=== PATIENT | male | born 1980 | race Caucasian/White ===

== ENCOUNTER 2018-05-04 14:26 | Emergency (ER) | END 2018-05-04 19:02 | disposition home or self-care (01) ==

== ENCOUNTER 2018-05-07 00:01 | Emergency (ER) | END 2018-05-07 06:27 | disposition home or self-care (01) ==

== ENCOUNTER 2018-12-04 14:37 | Emergency (ER) | payer MEDICAID, OTHER ==
[~2018-12-04] VITALS: Ht 167.6 cm; Wt 85.0 kg
[~2018-12-04 14:37] MED LIST: HYDR-4011 PO; IBUP-1542 PO
[2018-12-04 14:50] VITALS: Ht 167.6 cm; Wt 85.0 kg
[2018-12-04] MEDS ORDERED: KETOROLAC 60 MG INJ IM STA (18:10)
[2018-12-04] MEDS ORDERED: traMADol 50 MG TAB PO ONE (18:30)
[2018-12-04] MEDS ORDERED: INDO-39 PO (21:08)
[2018-12-04] MEDS ORDERED: TRAM50TA PO (21:08)
--- NOTE | 2018-12-04 21:29 | ERD ---
ER Documentation Chief Complaint Chief Complaint R leg pain since Sunday; denies injury/fall HPI History of Present Illness: History of Present Illness: Patient coming in today with complaint of right lower extremity pain for 2 days. Patient denies injury or trauma. Patient describes pain is constant, sharp, 7/10 to the top of right knee into the back of the knee and extending downward to calf, reports unable to fully bend and extend knee due to pain. Associated symptoms include swelling, erythema affected extremity. Denies fever chills fatigue. At home pharmacological/nonpharmacological treatment for symptoms: ice no relief of pain Social History: Patient denies tobacco, alcohol, elicit drug use Allergies: Penicillin Social Concerns: Denies ROS All systems reviewed and are negative except as per history of present illness. Medications Home Meds Active Scripts Tramadol Hcl* (Ultram*) 50 Mg Tablet, 50 MG PO Q8 for moderate/severe pain, #6 TAB Prov:SELINA SAGASTUME V RISK ADVISOR 12/04/18 Indomethacin* (Indocin*) 50 Mg Cap, 50 MG PO TID PRN for gout flareup, #30 CAP Prov:SELINA SAGASTUME V RISK ADVISOR 12/04/18 Hydrocodone/Acetaminophen (Riddle 5-325 Tablet) 1 Each Tablet, 1 TAB PO Q6H PRN for PAIN, #20 TAB Prov:BARTOLO,REG C 05/04/18 Ibuprofen* (Motrin*) 600 Mg Tab, 600 MG PO Q6, #30 TAB Prov:BARTOLO,REG C 05/04/18 Allergies Allergies: Coded Allergies: Penicillins (Unverified Allergy, Unknown, rashes, 05/07/18) PMhx/Soc History of Surgery: Yes (tumor removal at the back) Anesthesia Reaction: No Hx Neurological Disorder: No Hx Respiratory Disorders: No Hx Cardiac Disorders: No Hx Psychiatric Problems: No Hx Miscellaneous Medical Probl: No Hx Alcohol Use: Yes (used to drink daily; quit 2 weeks ago) Hx Substance Use: Yes (past use meth >1yr ago; marijuana 6mo ago) Hx Tobacco Use: Yes ("only on the weekends") Smoking Status: Current every day smoker FmHx Family History: diabetes Physical Exam Vitals Vital Signs Date Temp Pulse Resp B/P (MAP) Pulse Ox O2 O2 Flow FiO2 Time Delivery Rate 12/04/18 97.9 86 20 154/78 99 14:50 (103) Physical Exam Const: No acute distress Head: Atraumatic Eyes: Normal Conjunctiva ENT: Normal External Ears, Nose and Mouth. Neck: Full range of motion. No meningismus. Resp: Clear to auscultation bilaterally Cardio: Regular rate and rhythm, no murmurs Abd: Soft, non tender, non distended. Normal bowel sounds Skin: No petechiae or rashes Back: No midline or flank tenderness Ext: No cyanosis. Neurovascularly intact distally. Warmth and erythema noted to right knee. Tenderness to palpation to behind the knee and upper calf. Positive Homans. Decreased extension and flexion of knees secondary to pain, grimacing noted. Neur: Awake and alert Psych: Normal Mood and Affect Result Diagram: 12/04/182020 Results 24 hrs Laboratory Tests Test 12/04/18 20:21 White Blood Count 9.5 10^3/ul Red Blood Count 4.92 10^6/ul Hemoglobin 14.4 g/dl Hematocrit 42.5 % Mean Corpuscular Volume 86.4 fl Mean Corpuscular Hemoglobin 29.3 pg Mean Corpuscular Hemoglobin Concent 33.9 g/dl Red Cell Distribution Width 12.7 % Platelet Count 240 10^3/UL Mean Platelet Volume 8.4 fl Immature Granulocytes % 0.600 % Neutrophils % 76.5 % Lymphocytes % 14.5 % Monocytes % 4.9 % Eosinophils % 3.1 % Basophils % 0.4 % Nucleated Red Blood Cells % 0.0 /100WBC Immature Granulocytes # 0.060 10^3/ul Neutrophils # 7.3 10^3/ul Lymphocytes # 1.4 10^3/ul Monocytes # 0.5 10^3/ul Eosinophils # 0.3 10^3/ul Basophils # 0.0 10^3/ul Nucleated Red Blood Cells # 0.0 10^3/ul Uric Acid 8.6 mg/dl Current Medications Medications Dose Sig/Macy Start Time Status Last (Trade) Ordered Route PRN Stop Time Admin Dose Reason Admin Ketorolac 60 mg ONCE STAT 12/04/18 DC 12/04/18 Tromethamine IM 18:10 18:33 (Toradol) 12/04/18 18:16 Tramadol 50 mg ONCE ONCE 12/04/18 DC 12/04/18 HCl PO 18:30 18:33 (Ultram) 12/04/18 18:31 Procedures/MDM ED course includes a thorough examination and history. ED course includes medication; Toradol for inflammation/pain and tramadol for pain. ED course includes imaging; x-ray Knee and venous ultrasound of right extremity. Patient reassessment: Updated on x-ray results. IMPRESSION: No evidence of fracture. Moderate joint effusion; ultrasound IMPRESSION: No evidence of deep venous thrombosis within the right lower extremity. Due to knee being warm and red, will order CBC to rule out infectious process and uric acid to determine if gout etiology. Otherwise healthy patient presenting with constellation of symptoms likely repre senting uncomplicated gout exacerbation as characterized by history, physical exam findings. CBC White count within normal limits, no signs of infection. Uric acid elevated. ED application of Claude wrap. Reassessment: Updated on results of blood work. Education provided regarding gout and diet changes. Disposition given. Questions answered. No respiratory distress, otherwise relatively well appearing and nontoxic. Patient educated on diagnoses, prescriptions, follow-up care, return precaut ions. Strict return precautions given for worsening condition; questions answered discharge. Disposition for discharge with followup in 2 days with PCP/clinic. Departure Diagnosis: Primary Impression: Gout Gout site: knee Gout etiology: unspecified cause Chronicity: acute Laterality: right Qualified Codes: M10.9 - Gout, unspecified Condition: Stable Patient Instructions: Gouty Arthritis, Gout Diet Referrals: COMMUNITY CLINICS YOU HAVE RECEIVED A MEDICAL SCREENING EXAM AND THE RESULTS INDICATE THAT YOU DO NOT HAVE A CONDITION THAT REQUIRES URGENT TREATMENT IN THE EMERGENCY DEPARTMENT. FURTHER EVALUATION AND TREATMENT OF YOUR CONDITION CAN WAIT UNTIL YOU ARE SEEN IN YOUR DOCTORS OFFICE WITHIN THE NEXT 1-2 DAYS. IT IS YOUR RESPONSIBILITY TO MAKE AN APPOINTMENT FOR FOLOW-UP CARE. IF YOU HAVE A PRIMARY DOCTOR --you should call your primary doctor and schedule an appointment IF YOU DO NOT HAVE A PRIMARY DOCTOR YOU CAN CALL OUR PHYSICIAN REFERRAL HOTLINE AT IF YOU CAN NOT AFFORD TO SEE A PHYSICIAN YOU CAN CHOSE FROM THE FOLLOWING [facility] [address] [facility] [address] [facility]. [facility] [address] [facility] [address] [facility] [facility] [address] [facility]. [facility] [address] [facility]. [facility] YOU HAVE RECEIVED A MEDICAL SCREENING EXAM AND THE RESULTS INDICATE THAT YOU DO NOT HAVE A CONDITION THAT REQUIRES URGENT TREATMENT IN THE EMERGENCY DEPARTMENT. FURTHER EVALUATION AND TREATMENT OF YOUR CONDITION CAN WAIT UNTIL YOU ARE SEEN IN YOUR DOCTORS OFFICE WITHIN THE NEXT 1-2 DAYS. IT IS YOUR RESPONSIBILITY TO MAKE AN APPOINTMENT FOR FOLOW-UP CARE. IF YOU HAVE A PRIMARY DOCTOR --you should call your primary doctor and schedule and appointment IF YOU DO NOT HAVE A PRIMARY DOCTOR YOU CAN CALL OUR PHYSICIAN REFERRAL HOTLINE AT . IF YOU CAN NOT AFFORD TO SEE A PHYSICIAN YOU CAN CHOSE FROM THE FOLLOWING [facility] INSTITUTIONS: [facility] [address] [place] [address] [facility] [address] [place], [place] [id number] [place] [address] [address] [place] [address] Additional Instructions: Call your primary care doctor TOMORROW for an appointment during the next 2-3 days.See the doctor sooner or return here if your condition worsens before your appointment time. Return to ER if you develop fever, chills, or any signs of infection. SELINA SAGASTUME NP Dec 04, 2018 21:29
[2018-12-04 21:30] VITALS: BP 134/78; PULSE 71; RESP 19
== END 2018-12-04 21:31 | disposition home or self-care (01) ==
LOC: FTE 14:37
DX: M10.9 Gout, unspecified (principal); F17.210 Nicotine dependence, cigarettes, uncomplicated
CPT/HCPCS: 36415; 73562; 84560; 85025; 93971; 96372; J1885; Z7502; Z7610